=== PATIENT | female | born 1935 | race Caucasian/White ===

== ENCOUNTER 2019-07-06 10:59 | Inpatient (IN) ==
[2019-07-06] MEDS ORDERED: LOTRISONE CREAM TOP PRN (16:06)
[2019-07-06] MEDS ORDERED: LEVSIN-SL SL PRN (16:07)
[2019-07-06] MEDS ORDERED: LORAZEPAM ORAL CONCENTRATE PO PRN (16:09)
[2019-07-06] MEDS ORDERED: PHENERGAN PO PRN (16:12)
[2019-07-06] MEDS ORDERED: PERICOLACE PO PRN (16:13)
--- NOTE | 2019-07-06 17:44 | HISTORY AND PHYSICAL ---
CHIEF COMPLAINT: Hospice patient for respite care. HISTORY OF PRESENT ILLNESS: Ms. Kline is an 83-year-old white female who I have followed for many years. She has been under hospice care for approximately 8-9 months since discharge home from rehab. Last July she was admitted for pneumonia. 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 Her son is her primary caregiver. Hospice called yesterday saying they felt that it was in the best interest of her and her son for a 4- or 5-day respite admission. She has been swallowing a pureed diet at home. She denies any specific pain or shortness of breath. She appears to have been bedridden for quite some time and has been unable to come to my office since her last admission last year. During this admission she was noted to be bradycardic and had an intermittent 2nd-degree AV block, and if she were a more active ambulatory person, would probably already have a pacemaker. She has a history of severe osteoporosis. PAST MEDICAL HISTORY: As above. HOME MEDICATIONS: Gabapentin 300 mg twice a day, lisinopril 10 mg daily, memantine 5 mg twice a day, prednisone 10 mg daily, Sennosides 1 b.i.d. p.r.n. for constipation, tramadol 50 mg 3 times a day. Hospice has added hyoscyamine, lorazepam concentrate, morphine liquid and Phenergan to the above medications. ALLERGIES: Indomethacin, ofloxacin, Levaquin and Cytotec. PHYSICAL EXAMINATION: VITAL SIGNS: Not taken. GENERAL APPEARANCE: Alert, elderly woman curled up on her left side under multiple blankets. She is awake and responsive and answers simple questions. Her memory is limited. HEENT: Her pupils are equal, round, and reactive to light. Extraocular movements are intact. The oropharynx is benign with moist mucous membranes. NECK: Has some stiffness but no rigidity. No abdomen. LUNGS: Clear bilaterally. CARDIOVASCULAR: Regular rate and rhythm with apical rate of 58. No murmurs were noted. ABDOMEN: Soft, scaphoid and nontender. Bowel sounds are unremarkable. There is no distention. EXTREMITIES: No edema. SKIN: Her skin turgor is normal with no rashes apparent. There is no skin breakdown or decubitus ulcers noted on her heels, buttocks, back or scapulae. Her plantar surfaces appear to be nonweightbearing. ASSESSMENT: 1. Terminal patient for respite care due to dementia, polymyalgia, osteoporosis and chronic degenerative disc disease. 2. Asymptomatic bradycardia. TREATMENT PLAN: No code blue, level 1. Comfort care as ordered. cc: Lc Lan MD
[2019-07-06] MEDS: NAMENDA PO SCH (21:03)
[2019-07-06] MEDS: ULTRAM PO SCH (21:03)
[2019-07-06] MEDS: FLEXERIL PO SCH (21:03)
[2019-07-06] MEDS: NEURONTIN PO SCH (21:03)
[2019-07-07] MEDS: ROXANOL CONC. LIQUID PO PRN (03:36)
[2019-07-07] MEDS: ULTRAM PO SCH ×3 (08:54→20:57)
[2019-07-07] MEDS: NAMENDA PO SCH ×2 (08:58→20:57)
[2019-07-07] MEDS: PREDNISONE PO SCH (08:58)
[2019-07-07] MEDS: NEURONTIN PO SCH ×2 (08:58→20:57)
[2019-07-07] MEDS: PRINIVIL PO SCH (08:58)
[2019-07-07] MEDS ORDERED: ZYRTEC PO SCH (09:00)
[2019-07-07] MEDS ORDERED: CALMOSEPTINE OINTMENT TOP PRN (14:00)
[2019-07-07] MEDS: CALMOSEPTINE OINTMENT TOP SCH (18:05)
[2019-07-07] MEDS: FLEXERIL PO SCH (20:56)
[2019-07-08] MEDS: ULTRAM PO SCH (08:07)
[2019-07-08] MEDS: PRINIVIL PO SCH (08:08)
[2019-07-08] MEDS: NEURONTIN PO SCH (08:35)
[2019-07-08] MEDS: PREDNISONE PO SCH (08:35)
[2019-07-08] MEDS: CALMOSEPTINE OINTMENT TOP SCH ×3 (08:35→16:25)
[2019-07-08] MEDS: NAMENDA PO SCH (08:35)
[2019-07-09] MEDS: NEURONTIN PO SCH ×3 (00:40→20:25)
[2019-07-09] MEDS: FLEXERIL PO SCH ×2 (00:40→20:25)
[2019-07-09] MEDS: NAMENDA PO SCH ×3 (00:41→20:25)
[2019-07-09] MEDS: CALMOSEPTINE OINTMENT TOP SCH ×7 (01:15→20:26)
[2019-07-09] MEDS: ULTRAM PO PRN ×3 (05:50→16:30)
[2019-07-09] MEDS: PREDNISONE PO SCH (08:31)
[2019-07-09] MEDS ORDERED: VITAMIN D PO SCH (09:00)
[2019-07-10] MEDS: NAMENDA PO SCH ×2 (11:00→20:50)
[2019-07-10] MEDS: NEURONTIN PO SCH ×2 (11:00→20:49)
[2019-07-10] MEDS: PREDNISONE PO SCH (11:00)
[2019-07-10] MEDS: CALMOSEPTINE OINTMENT TOP SCH ×3 (11:01→18:58)
[2019-07-10] MEDS: ULTRAM PO PRN ×2 (11:11→19:20)
[2019-07-10] MEDS: FLEXERIL PO SCH (20:51)
[2019-07-11] MEDS: CALMOSEPTINE OINTMENT TOP SCH ×5 (07:55→21:07)
[2019-07-11] MEDS: ROXANOL CONC. LIQUID PO PRN (07:55)
--- NOTE | 2019-07-11 09:49 | PROGRESS NOTE ---
DATE: 07/11/2019 SUBJECTIVE: Patient's chart was reviewed. In summary, patient was admitted for Respite care. Per the patient's report, while hospitalized, her overall condition has declined. Upon arrival, patient states that she was able to ambulate with a walker. Since being hospitalized, she has developed considerable low back pain. The patient states that she is unable to arise without considerable pain. She is unable to ambulate. Over the course of the last 24 hours she denies fevers, chills, nausea, vomiting, shortness of breath, or chest discomfort. OBJECTIVE: T-max 98.3 degrees, heart rate, 44 to 53. Respirations 12 to 16, blood pressure 118 to 158 over 45 to 52.General: Elderly, in no acute distress. Cardiovascular: Regular rate and rhythm. No significant murmurs, rubs, or gallops. Pulmonary: Clear to auscultation bilaterally. Abdomen: Soft, nontender, nondistended. Positive bowel sounds. Extremities: Moves all extremities well. No significant clubbing, cyanosis, or edema. Dermatologic: Evaluation reveals no evidence of rash. LABORATORY DATA: None. ASSESSMENT AND PLAN: 1. Hospice for Respite care-because of patient's current living situation and the inability of family members to provide needed assistance, patient was admitted to the hospital. Further discussion has been held regarding the future of her care, whether home or a long-term care facility is most appropriate. At this point, we will continue supportive care while hospitalized. We will defer this decision to patient's family and Dr. Lan. 2. Low back pain-as I have not seen patient prior to this visit, I am unsure as to her previous ambulatory status. Per her report, she was ambulating with a walker prior to admission. Currently, she notes intermittent, intense pain. Differential diagnosis is broad, but includes musculoskeletal etiology and bony issues with suspected got suspected osteoarthritis versus compression fracture. For now, we will continue supportive care. We will defer x-rays and possible physical therapy to Dr. Lan's discretion in the morning. 3. Hypertension-patient's lisinopril continues to be held. We will remain aware. DISPOSITION: At this point, patient continues to require half-way care in the hospital setting. We will plan discharge home once appropriate. cc: MD Lc Giraldo MD
[2019-07-11] MEDS: NAMENDA PO SCH ×2 (10:03→21:07)
[2019-07-11] MEDS: NEURONTIN PO SCH ×2 (10:03→21:07)
[2019-07-11] MEDS: PREDNISONE PO SCH (10:03)
[2019-07-11] MEDS: ULTRAM PO PRN (10:06)
[2019-07-11] MEDS: FLEXERIL PO SCH (21:07)
[2019-07-12] MEDS: ULTRAM PO PRN (05:07)
[2019-07-12 07:33] VITALS: BP 153/56
[2019-07-12] MEDS: PREDNISONE PO SCH ×2 (07:52→09:29)
[2019-07-12] MEDS: NEURONTIN PO SCH ×2 (07:53→09:29)
[2019-07-12] MEDS: NAMENDA PO SCH ×2 (07:53→09:29)
[2019-07-12] MEDS: ROXANOL CONC. LIQUID PO PRN (07:53)
[2019-07-12] MEDS: CALMOSEPTINE OINTMENT TOP SCH ×2 (07:58→09:29)
== END 2019-07-12 09:39 | disposition hospice, home (50) | DRG 884 ==
LOC: DIRADM 10:59 → EDIPHOLD 15:52 → 4N 18:14
PROVIDERS: ADMIT Internal Medicine; ATTEND Internal Medicine